=== PATIENT | male | born 1985 | race African-American/Black ===

== ENCOUNTER 2020-06-18 20:52 | Emergency (ER) | payer OTHER ==
[~2020-06-18] VITALS: Ht 210.8 cm; Wt 114.6 kg
[2020-06-18] MEDS ORDERED: CIPR-249 PO (22:24)
[2020-06-18] MEDS ORDERED: CIPROFLOXACIN 500MG TABLET PO ONE (22:25)
[2020-06-18 22:34] VITALS: BP 169/75
[2020-06-19] MEDS ORDERED: DOXY100C37 PO (21:29)
== END 2020-06-18 22:35 | disposition home or self-care (01) ==
LOC: M ED 20:52
DX: N39.0 Urinary tract infection, site not specified (principal)

== ENCOUNTER 2020-06-19 19:45 | Emergency (ER) | payer OTHER ==
[~2020-06-19] VITALS: Ht 180.3 cm; Wt 115.8 kg
[~2020-06-19 19:45] MED LIST: CIPR-249 PO
[2020-06-19] MEDS ORDERED: LIDOCAINE 1% SDV 5ML VIAL DILUENT ONE (21:00)
[2020-06-19] MEDS ORDERED: cefTRIAXone 500MG VIAL (J0696 PER 250MG) IM ONE (21:00)
[2020-06-19] MEDS ORDERED: DOXYCYCLINE HYCLATE 100MG TABLET PO ONE (21:00)
[2020-06-19] MEDS ORDERED: DOXY100C37 PO (21:29)
[2020-06-19 21:33] VITALS: BP 131/73
== END 2020-06-19 21:35 | disposition home or self-care (01) ==
LOC: M ED 19:45
DX: Z20.2 Contact with and (suspected) exposure to infections with a predominantly sexual mode of transmission (principal); R36.9 Urethral discharge, unspecified
CPT/HCPCS: 96372; 99283; J0696